=== PATIENT | male | born 1945 | race Caucasian/White ===

== ENCOUNTER → 2024-07-17 | Outpatient (CLI) | payer MEDICARE ==
[2024-07-17 13:18] LABS: INR 3.31 (0.85-1.15); PROTHROMBIN TIME 32.9 SEC (9.6-11.6)
[2024-07-17 13:20] LABS: PARTIAL THROMBOPLASTIN TIME 40.7 SEC (26.3-35.5)
== END | disposition home or self-care (01) ==
LOC: LAB 12:29
PROVIDERS: ATTEND Hospitalist
DX: I48.19 Other persistent atrial fibrillation (principal); D68.69 Other thrombophilia; Z79.01 Long term (current) use of anticoagulants
CPT/HCPCS: 36415; 85610; 85730